=== PATIENT | male | born 1950 | race Hispanic/Latino ===

== ENCOUNTER 2018-03-25 09:07 | Day surgery (SDC) | payer MEDICARE ==
[2018-03-23 10:57] VITALS: BMI 30.9
[2018-03-25 09:54] LABS: BASO # 0.02 K/mm3 (0.0-2.0); BASO % 0.3 % (0.0-3.0); EOS # 0.2 (0.0-0.7); EOS % 3.2 % (1.5-5.0); GRAN # 4.18 (1.4-6.5); GRAN % 69.8 % (50.0-68.0); HEMOGLOBIN 9.9 g/dL (14.0-18.0); LYMPH # 0.8 (1.2-3.4); LYMPH % 13.2 % (22.0-35.0); MEAN CELL VOLUME 57.1 fl (80.0-105.0); MEAN CORPUSCULAR HEMOGLOBIN 18.4 pg (25.0-35.0); MEAN CORPUSCULAR HGB CONC 32.2 g/dl (31.0-37.0); MEAN PLATELET VOLUME 9.7 fl (7.0-11.0); MONO # 0.8 (0.1-0.6); MONO % 13.5 % (1.0-6.0); RBC 5.38 10^6/uL (3.5-6.1); RED CELL DISTRIBUTION WIDTH 16.3 % (11.5-14.5)
[2018-03-25 09:59] LABS: BLOOD UREA NITROGEN 10 mg/dL (7-21); CALCIUM 9.4 mg/dL (8.4-10.5); GFR AFRICAN-AMERICAN > 60; GFR NON-AFRICAN AMERICAN > 60
[2018-03-25 10:08] LABS: INR 1.1 (0.93-1.08); PARTIAL THROMBOPLASTIN TIME 28.6 Seconds (25.1-36.5); PROTHROMBIN TIME 12.7 SECONDS (9.4-12.5)
[2018-03-25] MEDS ORDERED: Midazolam 2 MG/2 ML VIAL ONE (11:07)
[2018-03-25] MEDS ORDERED: Lidocaine 1% Inj (20ml) ONE (11:22)
[2018-03-25] MEDS ORDERED: Oxycodone/Acetaminophen 5/325 mg Tab PO PRN (11:44)
[2018-03-25] MEDS ORDERED: Sodium Chloride 0.45% 1,000 ML IV SCH (11:45)
[2018-03-25 12:12] VITALS: TEMP 98.3
[2018-03-25 12:41] VITALS: RESP 18
[2018-03-25 13:21] VITALS: BP 117/68; PULSE 94; O2SAT 96
--- NOTE | 2018-03-25 19:01 | CT ---
PROCEDURE: CT guided liver biopsy. HISTORY: Multiple liver lesions consistent with metastatic disease. Needs biopsy PHYSICIAN(S): Clayton Montalvo MD. TECHNIQUE: The relative risks and indications of the procedure were explained to the patient and his and consent obtained. The patient was placed supine on the CT scanner and preliminary images through the liver obtained. Conscious sedation and monitoring were provided throughout the procedure by a nurse. There are multiple large liver lesions. 6 cm lesion in the medial aspect of the left lobe was selected for biopsy. A right intercostal approach was selected and the area prepped and draped in the usual sterile fashion. 1% Xylocaine was used to anesthetize the skin and soft tissues. A 17-gauge guiding needle was advanced into the 6 cm lesion in the medial aspect of the left liver. Its position was confirmed with CT. Using coaxial technique, multiple core biopsies were obtained. The postprocedure images show no evidence of significant hemorrhage. IMPRESSION: 1. CT-guided liver biopsy as described above.
== END 2018-03-25 13:40 | disposition home or self-care (01) ==
LOC: SDS 09:07
PROVIDERS: ATTEND Radiology Vascular & Interventional Radiology
DX: C83.39 Diffuse large B-cell lymphoma, extranodal and solid organ sites (principal); I10 Essential (primary) hypertension; K21.9 Gastro-esophageal reflux disease without esophagitis
CPT/HCPCS: 36415; 47000; 77012; 80048; 85025; 85610; 85730; 88307; J2250; J2405; J3010; J7030

== ENCOUNTER 2018-03-30 08:08 | Day surgery (SDC) | payer MEDICARE ==
[2018-03-23 10:57] VITALS: BMI 30.9
[2018-03-30] MEDS ORDERED: Lactated Ringer's 1,000 ML IV SCH (08:45)
[2018-03-30] MEDS ORDERED: Etomidate 20 mg/10ml Inj IV ONE (10:06)
[2018-03-30] MEDS ORDERED: Lidocaine 1% Inj (20ml) ONE (10:06)
[2018-03-30] MEDS ORDERED: Propofol 10 mg/ml Inj (20 ML) ONE (10:13)
[2018-03-30 11:27] VITALS: BP 115/76; PULSE 85; RESP 18; TEMP 97.8; O2SAT 98
== END 2018-03-30 12:01 | disposition home or self-care (01) ==
LOC: ENDO 08:08
PROVIDERS: ATTEND Internal Medicine Gastroenterology
DX: K57.30 Diverticulosis of large intestine without perforation or abscess without bleeding (principal); K64.8 Other hemorrhoids; K63.9 Disease of intestine, unspecified; R93.3 Abnormal findings on diagnostic imaging of other parts of digestive tract
CPT/HCPCS: 45378; J2704; J2765; J7040; J7120